=== PATIENT | male | born 1980 | race Caucasian/White ===

== ENCOUNTER 2022-10-06 13:42 | Outpatient (OUT) | payer MEDICAID, SELFPAY ==
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
== END 2022-10-06 13:43 | disposition home or self-care (01) ==
LOC: CT 13:42
PROVIDERS: PCP Physician Assistant; Visit Provider Physician Assistant
DX: M54.2 Cervicalgia (principal)
CPT/HCPCS: 72125

== ENCOUNTER 2023-02-03 17:06 | Emergency (ER) | payer MEDICAID, SELFPAY ==
[2023-02-03 17:21] VITALS: BP 148/89; PULSE 93; RESP 18; TEMP 36.7; O2SAT 96; BMI 46.2
--- NOTE | 2023-02-03 18:13 | ED_ITS ---
HPI - URI/Sore Throat General Chief Complaint: Upper Respiratory Infection Stated Complaint: COUGH, BLOODY NOSE Time Seen by Provider: 02/03/23 17:52 Source: patient Limitations: no limitations History of Present Illness HPI Narrative: this patient's here with his baby for both to be evaluated. The mother is here with him but she's not ill. He is here with cough congestion foor approximately one week. He came in today because when he notices sputum today it was blood tinged. He has not had fever shakes rigors or chills. He has not had severe aches and pains myalgias or arthralgias. He had been influenza previously and he says it does not feel as bad as that. He's not had a nausea vomiting. Had slight runny nose slight sore throat no earache no severe headache. He does not have a skin rash. He is otherwise healthy. He's not on any antibiotics. Related Data Allergies Allergy/AdvReac Type Severity Reaction Status Date / Time No Known Drug Allergies Allergy Verified 02/03/23 17:20 [facility] Social History Smoking status: Never smoker Exam Narrative Exam Narrative: awake alert complete sentences he has no respiratory distress his pulse ox ninety-six percent on room air , normal respiratory a rate noted. He is afebrile. Neurological no abnormal cognition or evidence of meningeal irritation or headache. Skin integument warm and dry no evidence of pallor or anemia. Lungs are clear with no wheezes rales or rhonchi. Heart sounds normal. Constitutional Vital Signs, click to edit/add: Last Vital Signs Temp 98.1 F 02/03/23 17:21 Pulse 93 H 02/03/23 17:21 Resp 18 02/03/23 17:21 BP 148/89 H 02/03/23 17:21 Pulse Ox 96 02/03/23 17:21 O2 Del Method Room Air 02/03/23 17:21 Course Vital Signs Vital signs: Vital Signs Temperature 98.1 F 02/03/23 17:21 Pulse Rate 93 H 02/03/23 17:21 Respiratory Rate 18 02/03/23 17:21 Blood Pressure 148/89 H 02/03/23 17:21 Pulse Oximetry 96 02/03/23 17:21 Oxygen Delivery Method Room Air 02/03/23 17:21 Temperature 98.1 F 02/03/23 17:21 Pulse Rate 93 H 02/03/23 17:21 Respiratory Rate 18 02/03/23 17:21 Blood Pressure 148/89 H 02/03/23 17:21 Pulse Oximetry 96 02/03/23 17:21 Oxygen Delivery Method Room Air 02/03/23 17:21 MDM - URI/Sore Throat MDM Narrative Medical decision making narrative: patient self tested for Covid at home last week after he was ill for a couple days and it was negative. He's here primarily to have his sputum evaluated and also because his baby child has a low bit of a cough. his chest x-ray is negative per my review. This all consistent with a viral illness. He does not have any immunocompromising disorders. I don't believe he'll benefit from antivirals at this juncture. Discharge Plan Discharge Chief Complaint: Upper Respiratory Infection Clinical Impression: Viral infection Patient Disposition: Home, Self-Care Time of Disposition Decision: 18:59 Additional Instructions: plenty of fluids/rest follow-up primary care doctor or return if he have worsening symptoms Stand Alone Forms: Portal Instructions Referrals: Doron Mcgrath [Primary Care Provider] - 1 week
--- NOTE | 2023-02-03 18:50 | XR_ITS ---
[address] [address] Patient Name: RASHAD ANDREA MRN: [id number] date: 1980 Sex: M Assigned Patient Location: ER Current Patient Location: ED.MAIN Accession/Order Number: [id number] Exam Date: 02/03/2023 18:45 Report Date: 02/03/2023 19:19 At the request of: THAIS GABRIEL Procedure: XR chest 1V EXAMINATION: XR chest 1V HISTORY: Cough COMPARISON: Chest x-rays 05/09/2009 TECHNIQUE: Portable chest FINDINGS: The lung parenchyma is free of consolidation or infiltrate. No pneumothorax or pleural effusion. The cardiac, mediastinal and hilar contours are normal. The visualized osseous structures exhibit no gross abnormality. XR/XR chest 1V IMPRESSION: No acute cardiopulmonary abnormality. Electronically authenticated by: TIFFANY GREENWOOD Date: 02/03/2023 19:19
[2023-02-03 19:07] VITALS: PULSE 84; RESP 14; O2SAT 98
== END 2023-02-03 19:31 | disposition home or self-care (01) ==
PROVIDERS: Emergency Provider Emergency Medicine Emergency Medical Services; PCP Physician Assistant
DX: B34.9 Viral infection, unspecified (principal)
CPT/HCPCS: 71045; 99283

== ENCOUNTER 2024-02-27 15:51 | Emergency (ER) | payer MEDICAID, SELFPAY ==
[2024-02-27 15:54] VITALS: BP 148/100; PULSE 84; TEMP 36.7; O2SAT 99; BMI 46.2
--- NOTE | 2024-02-27 16:24 | ED.SKABFB1 ---
HPI - Skin/Abscess/Foreign Bdy General Chief complaint: Skin/Abscess/Foreign Body Stated complaint: lump under right armpit Time Seen by Provider: 02/27/24 16:04 Source: patient Mode of arrival: walk-in Limitations: no limitations History of Present Illness HPI narrative: Patient is a 43-year-old male who presents to the emergency department for swollen area to the right axilla for the last 4 days. He has not had any fevers or vomiting. He is not diabetic. He states he has a history of abscess to the chest in the past. Related Data Previous Rx's ?Medication ?Instructions ?Recorded cephalexin 500 mg capsule 500 mg PO Q8H 10 days #30 caps 02/27/24 ondansetron 4 mg disintegrating 4 mg PO Q6H PRN nausea and 02/27/24 tablet vomiting #12 tabs oxycodone-acetaminophen 5 mg-325 1 tab PO Q6H PRN pain 3 days #15 02/27/24 mg tablet (Percocet) tabs sulfamethoxazole 800 1 tab PO BID 10 days #20 tabs 02/27/24 mg-trimethoprim 160 mg tablet (Bactrim DS) Allergies Allergy/AdvReac Type Severity Reaction Status Date / Time No Known Drug Allergies Allergy Verified 02/27/24 15:59 Review of Systems ROS Constitutional Denies: fever or chills Ears, nose, mouth, and throat Denies: throat pain or nasal congestion Cardiovascular Denies: chest pain Respiratory Denies: shortness of breath Gastrointestinal Denies: nausea or vomiting Musculoskeletal Reports: extremity pain; Denies: back pain or neck pain Integumentary/Breast Reports: redness, skin pain and skin tenderness; Denies: rash Hematologic/Lymphatic Denies: easy bruising or easy bleeding PFSH PFS Social History Smoking status: Never smoker Little interest or pleasure in doing things: not at all Feeling down, depressed, or hopeless: not at all Exam Narrative Exam Narrative: Gen.: Awake, alert, in no distress Head: Normocephalic, atraumatic ENT: Moist mucous membranes Respiratory: No respiratory distress Extremities: 3 x 1 cm erythematous and fluctuant area to the right axilla with surrounding 8 cm of induration and soft tissue edema in the axilla. No open areas or drainage. Psych: Normal mood and affect Neuro: No focal neuro deficit Skin: Warm, dry, intact Constitutional Vital Signs, click to edit/add: Last Vital Signs Temp 98.1 F 02/27/24 15:54 Pulse 84 02/27/24 15:54 Resp 20 02/27/24 15:54 BP 148/100 H 02/27/24 15:54 Pulse Ox 99 02/27/24 15:54 O2 Del Method Room Air 02/27/24 15:54 Course Vital Signs Vital signs: Vital Signs Temperature 98.1 F 02/27/24 15:54 Pulse Rate 84 02/27/24 15:54 Respiratory Rate 20 02/27/24 15:54 Blood Pressure 148/100 H 02/27/24 15:54 Pulse Oximetry 99 02/27/24 15:54 Oxygen Delivery Method Room Air 02/27/24 15:54 Temperature 98.1 F 02/27/24 15:54 Pulse Rate 84 02/27/24 15:54 Respiratory Rate 20 02/27/24 15:54 Blood Pressure 148/100 H 02/27/24 15:54 Pulse Oximetry 99 02/27/24 15:54 Oxygen Delivery Method Room Air 02/27/24 15:54 MDM - Skin/Abscess/Foreign Bdy MDM Narrative Medical decision making narrative: Patient has no tachycardia, fevers and is not diabetic. He has a large swollen area to the right axilla, and patient and drainage was performed. Please see procedure note for details. Wound culture is pending. I contacted general surgery office, Dr. Ortega who can see the patient for follow-up in the next 1 to 2 days. Patient is placed on Bactrim, Keflex, short course of analgesics and Zofran. Incision and drainage: A single layer of iodine was used to prep the area. Drapes were placed to ensure isolation of the abscess and surrounding skin tissue. A regional field block was performed with 1% lidocaine. Incision was made with an 11 blade to the full dimension of the abscess, significant amount purulent material was expressed. Cultures were obtained and sent to the lab. Plain, 0.25 packing was placed within the abscess. A dry sterile dressing was placed. Patient tolerated the procedure well and will be discharged with Keflex, Bactrim and a short course of analgesic medications. SUPERVISED APC VISIT, PHYSICIAN ATTESTATION: Based on the medical record the care appears appropriate. ? Medical Records Attestation: I reviewed the patient's medical records. Discharge Plan Discharge Chief Complaint: Skin/Abscess/Foreign Body Clinical Impression: Abscess of right axilla Patient Disposition: Home, Self-Care Time of Disposition Decision: 16:48 Condition: Good Prescriptions / Home Meds: New sulfamethoxazole-trimethoprim [Bactrim DS] 800-160 mg tablet 1 tab PO BID 10 Days Qty: 20 0RF oxycodone-acetaminophen [Percocet] 5-325 mg tablet 1 tab PO Q6H PRN (Reason: pain) 3 Days Qty: 15 0RF Rx Instructions: DX: L02.411 cephalexin 500 mg capsule 500 mg PO Q8H 10 Days Qty: 30 0RF ondansetron 4 mg tablet,disintegrating 4 mg PO Q6H PRN (Reason: nausea and vomiting) Qty: 12 0RF Print Language: Puerto [place]ican Instructions: Abscess Follow-up (ED) Referrals: Cj Ortega MD [Physician] - As soon as possible (Call the office tomorrow to be scheduled for the [place] office ) Doron Mcgrath [Physician] - 1 week
[2024-02-27] MEDS: LIDOCAINE HCL 1% 100 MG/10 ML MDV INJ (16:40)
[2024-02-28 17:33] LABS: BOX Test Reference Lab FIRELANDS; BOX Test Sent Out WOUND CULTURE
== END 2024-02-27 17:04 | disposition home or self-care (01) ==
PROVIDERS: Emergency Provider Emergency Medicine
DX: L02.411 Cutaneous abscess of right axilla (principal)
CPT/HCPCS: 10060; 36415; 87070; 87075; 87150; 87186; 87205; 99283